=== PATIENT | male | born 1945 | race Caucasian/White ===

== ENCOUNTER 2017-05-12 23:22 | Emergency (ER) | payer MEDICARE ==
[~2017-05-12] VITALS: Ht 177.8 cm; Wt 77.3 kg
[~2017-05-12 23:22] MED LIST: IBUP200T2 PO; PROS5TAB PO; TAMS5CAP PO
[2017-05-12 23:24] VITALS: BP 157/78; PULSE 94; RESP 18; TEMP 98.1; O2SAT 98
--- NOTE | 2017-05-12 23:53 | PD ---
HPI Chief Complaint: Complaint Time Seen by Provider: 23:42 Travel History International Travel<30 days: No Contact w/Intl Traveler<30days: No Traveled to known affect area: No History of Present Illness HPI 72-year-old male with history of BPH, presents to the ER today for several days history of problems starting urine stream, mild dysuria, and states that it has been worsening today. He was not able to urinate for several hours until now. He has lower abdominal discomfort. He denies any nausea, vomiting, or any other symptoms. He states the last time he had symptoms, he was diagnosed with BPH and has been on Flomax for several years. He denies any new medications. Modifying Factors: None Associated Signs & Symptoms: Difficulty urinating, urinary urgency, dysuria, lower abdominal discomfort Risk Factors: History of BPH PFSH Past Medical History Arthritis: Yes Kidney Stones: Yes (hx of in the 70's) Tetanus Vaccination: < 5 Years Influenza Vaccination: Yes Social History Alcohol Use: Yes Tobacco Use: No (quit 1971) Substance Use: No Allergies-Medications (Allergen,Severity, Reaction): Coded Allergies: No Known Allergies (Unverified , 05/12/17) Reported Meds & Prescriptions Reported Meds & Active Scripts Active Proscar (Finasteride) 5 Mg Tab 5 Mg PO DAILY Do not crush. Reported Flomax (Tamsulosin HCl) 0.4 Mg Cap 0.4 Mg PO HS Ibuprofen 200 Mg Tab 200 Mg PO DIRECTED PRN Review of Systems Except as stated in HPI: all other systems reviewed are Neg Physical Exam Narrative GENERAL: Well-developed elderly male patient currently none acute distress. Awake and oriented 3. SKIN: Focused skin assessment warm/dry. HEAD: Atraumatic. Normocephalic. EYES: Pupils equal and round. No scleral icterus. No injection or drainage. ENT: No nasal bleeding or discharge. Mucous membranes pink and moist. NECK: Trachea midline. No JVD. CARDIOVASCULAR: Regular rate and rhythm. No murmur appreciated. RESPIRATORY: No accessory muscle use. Clear to auscultation. Breath sounds equal bilaterally. GASTROINTESTINAL: Abdomen soft, mild suprapubic tenderness without guarding or rebound, nondistended. Hepatic and splenic margins not palpable. MUSCULOSKELETAL: No obvious deformities. No clubbing. No cyanosis. No edema. NEUROLOGICAL: Awake and alert. No obvious cranial nerve deficits. Motor grossly within normal limits. Normal speech. PSYCHIATRIC: Appropriate mood and affect; insight and judgment normal. Data Data Last Documented VS Vital Signs Date Time Temp Pulse Resp B/P Pulse Ox O2 Delivery O2 Flow Rate FiO2 05/12/17 23:24 98.1 94 18 157/78 98 Room Air Orders Urinalysis - C+S If Indicated (05/12/17 23:42) Urinary Catheter Insert/Apply (05/12/17 23:42) Urine Culture (05/12/17 23:43) Labs Laboratory Tests Test 05/12/17 23:43 Urine Color YELLOW Urine Turbidity CLOUDY Urine pH 6.5 Urine Specific [place] 1.020 Urine Protein 100 mg/dL Urine Glucose (UA) NEG mg/dL Urine Ketones NEG mg/dL Urine Occult Blood LARGE Urine Nitrite NEG Urine Bilirubin NEG Urine Urobilinogen LESS THAN 2.0 MG/DL Urine Leukocyte Esterase LARGE Urine RBC /hpf Urine WBC /hpf Urine WBC Clumps MANY Urine Bacteria FEW /hpf Microscopic Urinalysis Comment CULTURE INDICATED MDM Medical Decision Making Medical Screen Exam Complete: Yes Emergency Medical Condition: Yes Medical Record Reviewed: Yes Interpretation(s) Laboratory Tests Test 05/12/17 23:43 Urine Turbidity CLOUDY (CLEAR) Urine Protein 100 mg/dL (NEG-TRACE) Urine Occult Blood LARGE (NEG) Urine Leukocyte Esterase LARGE (NEG) Urine WBC Clumps MANY (NONE) Urine Bacteria FEW /hpf (NONE) Differential Diagnosis Suprapubic tenderness, urinary symptomsBPH versus UTI Narrative Course Post void residual after Pugh catheter was placed was 300 cc. There is notable cloudy urine and UA shows UTI. His suspect that most of the symptoms is secondary to the UTI. My plan would be to treat the UTI. I have talked to the patient regarding the Pugh catheter and whether we should remove it versus keep it in place at this point until he follows up with his urologist, Dr. Henderson; and he states that he would rather maintain the Pugh catheter in case he has further issues at this time. We will give him a leg bag. Return for any worsening in pain, fevers, vomiting, or new symptoms as needed. The plan has been discussed with him and he states understanding. Diagnosis Primary Impression: UTI (urinary tract infection) Med/Other Pt SpecificInfo: Prescription(s) given Scripts Sulfamethoxazole-Trimethoprim (Bactrim DS)800-160 Mg Tab1 Tab PO BID #14 TAB Ref 0 Prov:Sally Kohler MD 05/13/17 Disposition: 01 DISCHARGE HOME Condition: Stable Sally Kohler MD May 12, 2017 23:53
[2017-05-13 00:09] LABS: BACTERIA, URINE FEW /hpf; BLOOD, URINE LARGE (NEG); COMMENT (UR) CULTURE INDICATED; CULTURE IF INDICATED CULTURE INDICATED; GLUCOSE,URINE NEG (NEG); KETONE, URINE NEG (NEG); NITRITE,URINE NEG (NEG); PH, URINE 6.5 (5.0-8.5); URINE COLOR YELLOW (YELLW/STRAW)
[2017-05-13] MEDS ORDERED: BACT800T5 PO (00:49)
[2017-05-13] MEDS ORDERED: SULFAMETHOXAZOLE-TRIMETHOPRIM DS 800-160 MG TAB PO ONE (01:00)
== END 2017-05-13 01:38 | disposition home or self-care (01) ==
LOC: NEPC 23:22
DX: N40.1 Benign prostatic hyperplasia with lower urinary tract symptoms (principal); N39.0 Urinary tract infection, site not specified
CPT/HCPCS: 81001; 87086; 99283

== ENCOUNTER 2017-10-25 11:54 | Observation (INO) | payer MEDICARE ==
[~2017-10-25] VITALS: Ht 177.8 cm; Wt 79.0 kg
[~2017-10-25 11:54] MED LIST changes: +BACT800T5 PO; -IBUP200T2 PO; +IBUP200T47 PO
[2017-10-25 12:05] VITALS: BP 134/63; PULSE 62; RESP 18; TEMP 97.9; O2SAT 97
[2017-10-25] MEDS ORDERED: SODIUM CHLOR 0.9% 1000 ML INJ 1,000 ML IV ONE (12:07)
[2017-10-25 12:11] VITALS: BP_SYST 127; BP_SYST 129; BP_SYST 134; BP_DIAS 63; BP_DIAS 64; BP_DIAS 68; RESP 18
--- NOTE | 2017-10-25 12:11 | PD ---
HPI Chief Complaint: Syncope/Near-Syncope Time Seen by Provider: 11:58 Travel History International Travel<30 days: No Contact w/Intl Traveler<30days: No Traveled to known affect area: No History of Present Illness HPI The patient is a 72-year-old male who presents to the emergency department after a possible syncopal episode. The patient underwent a TURP earlier today by his urologist, Dr. Dawson. The patient apparently was sitting in the car when he became nauseated, broke out in a sweat, and felt like he needed to have a bowel movement. The patient apparently "passed out "for an unknown length of duration. With the patient awakened he did state he was somewhat diaphoretic and felt nauseous. Patient states his symptoms have currently resolved and he has no current symptoms. Patient states she recently had palpitations and had an outpatient Holter monitor and echocardiogram at [facility] which were unremarkable per his report. The patient's primary physician is Dr. Hernandez. [facility] Past Medical History Arthritis: Yes Kidney Stones: Yes (hx of in the 70's) Social History Alcohol Use: Yes Tobacco Use: No (quit 1971) Substance Use: No Allergies-Medications (Allergen,Severity, Reaction): Coded Allergies: No Known Allergies (Unverified Adverse Reaction, Unknown, 10/25/17) Reported Meds & Prescriptions Reported Meds & Active Scripts Active Proscar (Finasteride) 5 Mg Tab 5 Mg PO DAILY Do not crush. Reported Cipro (Ciprofloxacin HCl) 500 Mg Tab 500 Mg PO BID Flomax (Tamsulosin HCl) 0.4 Mg Cap 0.4 Mg PO HS Ibuprofen 200 Mg Tab 200 Mg PO DIRECTED PRN Review of Systems Except as stated in HPI: all other systems reviewed are Neg HENT: Positive: Lightheadedness Cardiovascular: Positive: Diaphoresis, Syncope, No: Chest Pain or Discomfort, Palpitations, Irregular Rhythm, Tachycardia Respiratory: No: Shortness of Breath Gastrointestinal: Positive: Nausea, No: Vomiting, Abdominal Pain Musculoskeletal: Positive: Weakness Neurologic: Positive: Weakness Physical Exam Narrative GENERAL: Awake, alert, pleasant 72-year-old male who appears his stated age and is in no acute respiratory distress. SKIN: Focused skin assessment warm/dry. HEAD: Atraumatic. Normocephalic. EYES: Pupils equal and round. No scleral icterus. No injection or drainage. ENT: No nasal bleeding or discharge. Mucous membranes pink and moist. NECK: Trachea midline. No JVD. CARDIOVASCULAR: Regular rate and rhythm. No murmur appreciated. Heart rate in the 60s. RESPIRATORY: No accessory muscle use. Clear to auscultation. Breath sounds equal bilaterally. GASTROINTESTINAL: Abdomen soft, non-tender, nondistended. Genitourinary: Pugh catheter in place with visible blood in the Pugh catheter bag. MUSCULOSKELETAL: No obvious deformities. No clubbing. No cyanosis. No edema. NEUROLOGICAL: Awake and alert. No obvious cranial nerve deficits. Motor grossly within normal limits. Normal speech. Nonfocal. PSYCHIATRIC: Appropriate mood and affect; insight and judgment normal. Data Data Last Documented VS Vital Signs Date Time Temp Pulse Resp B/P (MAP) Pulse Ox O2 Delivery O2 Flow Rate FiO2 10/25/17 12:11 62 18 134/63 (86) 72 18 129/64 (85) 73 18 127/68 (87) 10/25/17 12:10 97 Room Air 10/25/17 12:05 97.9 Orders Orders Electrocardiogram (10/25/17 12:07) Complete Blood Count With Diff (10/25/17 12:07) Comprehensive Metabolic Panel (10/25/17 12:07) Magnesium (Mg) (10/25/17 12:07) Ecg Monitoring (10/25/17 12:07) Iv Access Insert/Monitor (10/25/17 12:07) Oximetry (10/25/17 12:07) Ondansetron Inj (Zofran Inj) (10/25/17 12:15) Sodium Chloride 0.9% Flush (Ns Flush) (10/25/17 12:15) Sodium Chlor 0.9% 1000 Ml Inj (Ns 1000 M (10/25/17 12:07) Orthostatic Vital Signs (10/25/17 12:07) Ondansetron Inj (Zofran Inj) (10/25/17 14:45) Sodium Chlor 0.9% 1000 Ml Inj (Ns 1000 M (10/25/17 14:45) Ciprofloxacin (Cipro) (10/25/17 21:00) Finasteride (Proscar) (10/26/17 09:00) Tamsulosin (Flomax) (10/25/17 21:00) Admit Order (Ed Use Only) (10/25/17 14:56) Labs Laboratory Tests Test 10/25/17 12:20 White Blood Count 8.8 TH/MM3 Red Blood Count 3.79 MIL/MM3 Hemoglobin 13.0 GM/DL Hematocrit 36.4 % Mean Corpuscular Volume 96.0 FL Mean Corpuscular Hemoglobin 34.2 PG Mean Corpuscular Hemoglobin Concent 35.6 % Red Cell Distribution Width 13.3 % Platelet Count 146 TH/MM3 Mean Platelet Volume 7.4 FL Neutrophils (%) (Auto) 85.5 % Lymphocytes (%) (Auto) 8.9 % Monocytes (%) (Auto) 5.3 % Eosinophils (%) (Auto) 0.2 % Basophils (%) (Auto) 0.1 % Neutrophils # (Auto) 7.5 TH/MM3 Lymphocytes # (Auto) 0.8 TH/MM3 Monocytes # (Auto) 0.5 TH/MM3 Eosinophils # (Auto) 0.0 TH/MM3 Basophils # (Auto) 0.0 TH/MM3 CBC Comment DIFF FINAL Differential Comment Blood Urea Nitrogen 18 MG/DL Creatinine 0.82 MG/DL Random Glucose 122 MG/DL Total Protein 6.2 GM/DL Albumin 3.5 GM/DL Calcium Level 7.9 MG/DL Magnesium Level 2.0 MG/DL Alkaline Phosphatase 59 U/L Aspartate Amino Transf (AST/SGOT) 22 U/L Alanine Aminotransferase (ALT/SGPT) 23 U/L Total Bilirubin 1.0 MG/DL Sodium Level 138 MEQ/L Potassium Level 3.6 MEQ/L Chloride Level 105 MEQ/L Carbon Dioxide Level 25.7 MEQ/L Anion Gap 7 MEQ/L Estimat Glomerular Filtration Rate 92 ML/MIN [facility] Medical Decision Making Medical Screen Exam Complete: Yes Emergency Medical Condition: Yes Medical Record Reviewed: Yes Interpretation(s) EKG reveals sinus bradycardia with sinus arrhythmia. Laboratory Tests Test 10/25/17 12:20 White Blood Count 8.8 TH/MM3 Red Blood Count 3.79 MIL/MM3 Hemoglobin 13.0 GM/DL Hematocrit 36.4 % Mean Corpuscular Volume 96.0 FL Mean Corpuscular Hemoglobin 34.2 PG Mean Corpuscular Hemoglobin Concent 35.6 % Red Cell Distribution Width 13.3 % Platelet Count 146 TH/MM3 Mean Platelet Volume 7.4 FL Neutrophils (%) (Auto) 85.5 % Lymphocytes (%) (Auto) 8.9 % Monocytes (%) (Auto) 5.3 % Eosinophils (%) (Auto) 0.2 % Basophils (%) (Auto) 0.1 % Neutrophils # (Auto) 7.5 TH/MM3 Lymphocytes # (Auto) 0.8 TH/MM3 Monocytes # (Auto) 0.5 TH/MM3 Eosinophils # (Auto) 0.0 TH/MM3 Basophils # (Auto) 0.0 TH/MM3 CBC Comment DIFF FINAL Differential Comment Blood Urea Nitrogen 18 MG/DL Creatinine 0.82 MG/DL Random Glucose 122 MG/DL Total Protein 6.2 GM/DL Albumin 3.5 GM/DL Calcium Level 7.9 MG/DL Magnesium Level 2.0 MG/DL Alkaline Phosphatase 59 U/L Aspartate Amino Transf (AST/SGOT) 22 U/L Alanine Aminotransferase (ALT/SGPT) 23 U/L Total Bilirubin 1.0 MG/DL Sodium Level 138 MEQ/L Potassium Level 3.6 MEQ/L Chloride Level 105 MEQ/L Carbon Dioxide Level 25.7 MEQ/L Anion Gap 7 MEQ/L Estimat Glomerular Filtration Rate 92 ML/MIN Differential Diagnosis Differential diagnosis includes syncope, vasovagal syncope, arrhythmia, seizure , electrolyte abnormality, cardiogenic syncope, micturition syncope. Narrative Course IV was established, labs are drawn and sent, and the patient was placed on cardiac telemetry monitoring and continuous pulse oximetry monitoring. EKG was ordered and interpreted. Orthostatic vital signs were obtained, the patient's blood pressure and heart rate did not change significantly, however, patient was dizzy upon standing which resolved after 10 seconds. The patient was administered 1 L of IV fluids. The patient's orthostatics were unremarkable except for dizziness with standing. The patient was reevaluated, felt somewhat improved, was able tolerate ice water. However, the patient then had another bout of dizziness, became diaphoretic, and felt like he needed to have a bowel movement. As the patient is had multiple near syncopal episodes in the ER and one syncopal episode at home the patient will be 23 hour observation for IV fluids. The patient's primary physician is Dr. Hernandez, she has [facility], therefore, the on-call [facility] physician was paged for 23 hour observation. Physician Communication Physician Communication The on-call [facility] physician was paged for 23 hour observation. I discussed the patient with Dr. Torres who agrees with 23 hour observation. Diagnosis Primary Impression: Syncope Qualified Codes: R55 - Syncope and collapse Admitting Information Admitting Physician Requests: Observation Condition: Stable Valerio Tinoco MD Oct 25, 2017 12:11
[2017-10-25] MEDS ORDERED: ONDANSETRON HCL 4 MG/2 ML VIAL IVP ONE (12:15)
[2017-10-25] MEDS ORDERED: SODIUM CHLORIDE 0.9% FLUSH 10 ML FLUSH IVF PRN (12:15)
[2017-10-25] MEDS ORDERED: CIPR-9 PO (12:16)
[2017-10-25 12:50] LABS: AUTOMATED NEUTROPHIL # 7.5 TH/MM3 (1.8-7.7); BASOPHIL % 0.1 % (0.0-2.0); EOSINOPHIL % 0.2 % (0.0-4.0); HEMATOCRIT 36.4 % (39.0-51.0); LYMPH % 8.9 % (9.0-44.0); LYMPHOCYTE # 0.8 TH/MM3 (1.0-4.8); MEAN CORPUSCULAR HEMOGLOBIN 34.2 PG (27.0-34.0); MEAN CORPUSCULAR HGB CONC 35.6 % (32.0-36.0); MEAN PLATELET VOLUME 7.4 FL (7.0-11.0); MONO % 5.3 % (0.0-8.0); MONOCYTE # 0.5 TH/MM3 (0-0.9); NEUT % 85.5 % (16.0-70.0); PLATELET COUNT 146 TH/MM3 (150-450); RED BLOOD COUNT 3.79 MIL/MM3 (4.50-5.90); RED CELL DISTRIBUTION WIDTH 13.3 % (11.6-17.2); WHITE BLOOD COUNT 8.8 TH/MM3 (4.0-11.0)
[2017-10-25 13:09] LABS: ALBUMIN 3.5 GM/DL (3.4-5.0); AST (GOT) 22 U/L (15-37); BICARBONATE 25.7 MEQ/L (21.0-32.0); BLOOD UREA NITROGEN 18 MG/DL (7-18); CALCIUM 7.9 MG/DL (8.5-10.1); CHLORIDE 105 MEQ/L (98-107); CREATININE 0.82 MG/DL (0.60-1.30); GLOMERULAR FILTRATION RATE 92 ML/MIN (>89); GLUCOSE,RANDOM 122 MG/DL (74-106); SODIUM (NA) 138 MEQ/L (136-145)
[2017-10-25 13:12] LABS: ALKALINE PHOSPHATASE 59 U/L (45-117); ALT (GPT) 23 U/L (12-78); TOTAL PROTEIN 6.2 GM/DL (6.4-8.2)
[2017-10-25] MEDS ORDERED: ONDANSETRON HCL 4 MG/2 ML VIAL IV PUSH ONE (14:45)
[2017-10-25] MEDS ORDERED: NALOXONE HCL 0.4 MG/ML AMP IV PUSH PRN (15:00)
[2017-10-25] MEDS ORDERED: MAGNESIUM HYDROXIDE SUSP 30 ML CUP PO PRN (15:00)
[2017-10-25] MEDS ORDERED: ACETAMINOPHEN 325 MG TAB PO PRN ×2 (15:00)
[2017-10-25] MEDS ORDERED: ONDANSETRON HCL 4 MG/2 ML VIAL IVP PRN (15:00)
[2017-10-25] MEDS ORDERED: traMADol HCL 50 MG TAB PO PRN (15:00)
[2017-10-25] MEDS ORDERED: SODIUM CHLORIDE 0.9% FLUSH 10 ML FLUSH IV FLUSH PRN (15:00)
[2017-10-25] MEDS: SODIUM CHLOR 0.9% 1000 ML INJ 1,000 ML IV SCH (15:04)
[2017-10-25 15:06] VITALS: BP 132/61; PULSE 66; RESP 18; O2SAT 99
--- NOTE | 2017-10-25 15:21 | HHI.HP ---
HPI Service [facility] Primary Care Physician Carmen Hernandez MD Admission Diagnosis vasovagal syncope, nausea, status post TURP Chief Complaint: Syncope/Presyncope Travel History International Travel<30 Days: No Contact w/Intl Traveler <30 Da: No Traveled to Known Affected Are: No History of Present Illness Mr. Parekh is a pleasant 72 y/o WM with BPH who presented to the ED at [facility] on 10/25/17 after a syncopal episode. The patient underwent outpt TURP earlier today with Dr. Dawson. The patient apparently went home post-procedure and was sitting in his car when he became nauseated, diaphoretic, and felt like he needed to have a bowel movement. The patient then reportedly "passed out" for an unknown length of time and when he woke back up he was somewhat diaphoretic and felt nauseous. Orthostatic vital signs were checked in the ED and the patient's blood pressure and heart rate did not change significantly, however, patient was dizzy upon standing which resolved after 10 seconds. The patient was administered 1 L of IVF in the ED. The patient was re-evaluated in the ED and felt somewhat improved; However, he had another bout of dizziness, and became diaphoretic and nauseated and again felt like he needed to have a bowel movement. Pt is being admitted for 23 hour observation and IV fluids. He has Pugh catheter in place with noted gross hematuria. Patient states that he recently had palpitations and had an outpatient Holter monitor which noted occasional PACs and PVCs and rare short atrial runs. He also had an echocardiogram which noted estimated EF 55-60%, mild aortic dilation at the level of the sinuses of Valsalva, moderate mitral valve regurgitation, mild aortic valve regurgitation, and mild tricuspid valve regurgitation, estimated PA pressure 29.9mmHg. Review of Systems Constitutional: COMPLAINS OF: Diaphoretic episodes, Dizziness, DENIES: Fever, Chills Eyes: DENIES: Vision loss Ears, nose, mouth, throat: DENIES: Hearing loss Respiratory: DENIES: Cough, Shortness of breath Cardiovascular: DENIES: Chest pain, Palpitations, Lower Extremity Edema Gastrointestinal: DENIES: Abdominal pain, Constipation, Diarrhea, GERD, Nausea , Vomiting Genitourinary: COMPLAINS OF: Hematuria Musculoskeletal: DENIES: Back pain, Neck pain Integumentary: DENIES: Rash Neurologic: DENIES: Headache, Localized weakness, Speech Problems Psychiatric: DENIES: Confusion Past Family Social History Past Medical History BPH s/p TURP today with Dr. Dawson Chronic prostatitis per outpt records Thrombocytopenia Varicose veins Past Surgical History Carpal tunnel release Lumbar Laminectomy Reported Medications Proscar (Finasteride) 5 Mg Tab 5 Mg PO DAILY Cipro (Ciprofloxacin HCl) 500 Mg Tab 500 Mg PO BID Flomax (Tamsulosin HCl) 0.4 Mg Cap 0.4 Mg PO HS Ibuprofen 200 Mg Tab 200 Mg PO DIRECTED PRN Allergies: Coded Allergies: No Known Allergies (Unverified Allergy, Unknown, 10/25/17) Family History Noncontributory Social History Denies any alcohol, tobacco or illicit drug use Pt is and lives with his spouse Physical Exam Vital Signs Vital Signs Date Time Temp Pulse Resp B/P (MAP) Pulse Ox O2 Delivery O2 Flow Rate FiO2 10/25/17 15:06 66 18 132/61 (84) 99 Room Air 10/25/17 12:11 62 18 134/63 (86) 72 18 129/64 (85) 73 18 127/68 (87) 10/25/17 12:10 62 18 97 Room Air 10/25/17 12:05 97.9 62 18 134/63 (86) 97 Physical Exam GENERAL: This is a well-nourished, well-developed patient, in no apparent distress. HEENT: Atraumatic. Normocephalic. No temporal or scalp tenderness. No scleral icterus. Airway patent. NECK: Trachea midline,supple, nontender. CARDIO: Regular. RESP: CTA bilaterally. No wheezes, rales, or rhonchi. ABD: +BS, soft, non-tender, nondistended. : Pugh catheter in place with gross hematuria noted EXT: Extremities without clubbing, cyanosis, or edema. NEURO: Awake and alert. Motor and sensory grossly within normal limits. Normal speech. Laboratory Laboratory Tests Test 10/25/17 12:20 White Blood Count 8.8 Red Blood Count 3.79 Hemoglobin 13.0 Hematocrit 36.4 Mean Corpuscular Volume 96.0 Mean Corpuscular Hemoglobin 34.2 Mean Corpuscular Hemoglobin Concent 35.6 Red Cell Distribution Width 13.3 Platelet Count 146 Mean Platelet Volume 7.4 Neutrophils (%) (Auto) 85.5 Lymphocytes (%) (Auto) 8.9 Monocytes (%) (Auto) 5.3 Eosinophils (%) (Auto) 0.2 Basophils (%) (Auto) 0.1 Neutrophils # (Auto) 7.5 Lymphocytes # (Auto) 0.8 Monocytes # (Auto) 0.5 Eosinophils # (Auto) 0.0 Basophils # (Auto) 0.0 CBC Comment DIFF FINAL Differential Comment Blood Urea Nitrogen 18 Creatinine 0.82 Random Glucose 122 Total Protein 6.2 Albumin 3.5 Calcium Level 7.9 Magnesium Level 2.0 Alkaline Phosphatase 59 Aspartate Amino Transf (AST/SGOT) 22 Alanine Aminotransferase (ALT/SGPT) 23 Total Bilirubin 1.0 Sodium Level 138 Potassium Level 3.6 Chloride Level 105 Carbon Dioxide Level 25.7 Anion Gap 7 Estimat Glomerular Filtration Rate 92 Result Diagram: 10/25/17 1220 10/25/17 1220 Imaging Last Impressions Chest X-Ray 10/25/17 1456 Signed Impressions: Service Date/Time: Wednesday, October 25, 2017 15:05 - CONCLUSION: No acute disease. MD Candi Villanuevai VTE Risk Assessment Caprini VTE Risk Assessment: Mod/High Risk (score >= 2) Caprini Risk Assessment Model Point Value = 1 Point Value = 2 Point Value = 3 Point Value = 5 Age 41-60 Minor surgery BMI > 25 kg/m2 Swollen legs Varicose veins or History of unexplained or recurrent spontaneous Oral contraceptives or hormone replacement Sepsis (< 1 month) Serious lung disease, including pneumonia (< 1 month) Abnormal pulmonary function Acute myocardial infarction Congestive heart failure (< 1 month) History of inflammatory bowel disease Medical patient at bed rest Age 61-74 Arthroscopic surgery Major open surgery (> 45 min) Laparoscopic surgery (> 45 min) Malignancy Confined to bed (> 72 hours) Immobilizing plaster cast Central venous access Age >= 75 History of VTE Family history of VTE Factor V Leiden Prothrombin [id number] Lupus anticoagulant Anticardiolipin antibodies Elevated serum homocysteine Heparin-induced thrombocytopenia Other congenital or acquired thrombophilia Stroke (< 1 month) Elective arthroplasty Hip, pelvis, or leg fracture Acute spinal cord injury (< 1 month) Prophylaxis Regimen Total Risk Factor Score Risk Level Prophylaxis Regimen 0-1 Low Early ambulation 2 Moderate Order ONE of the following: *Sequential Compression Device (SCD) *Heparin 5000 units SQ BID 3-4 Higher Order ONE of the following medications: *Heparin 5000 units SQ TID *Enoxaparin/Lovenox 40 mg SQ daily (WT < 150 kg, CrCl > 30 mL/min) *Enoxaparin/Lovenox 30 mg SQ daily (WT < 150 kg, CrCl > 10-29 mL/min) *Enoxaparin/Lovenox 30 mg SQ BID (WT < 150 kg, CrCl > 30 mL/min) AND/OR *Sequential Compression Device (SCD) 5 or more Highest Order ONE of the following medications: *Heparin 5000 units SQ TID (Preferred with Epidurals) *Enoxaparin/Lovenox 40 mg SQ daily (WT < 150 kg, CrCl > 30 mL/min) *Enoxaparin/Lovenox 30 mg SQ daily (WT < 150 kg, CrCl > 10-29 mL/min) *Enoxaparin/Lovenox 30 mg SQ BID (WT < 150 kg, CrCl > 30 mL/min) AND *Sequential Compression Device (SCD) Assessment and Plan Problem List: (1) Syncope ICD Codes: R55 - Syncope and collapse Status: Acute Plan: - Pt is a 72 y/o WM with BPH who presented to the ED at [facility] on 10/25/17 after a syncopal episode. - The patient underwent outpt TURP earlier today with Dr. Dawson. He went home post-procedure and was sitting in his car when he became nauseated, diaphoretic, and felt like he needed to have a bowel movement. The patient then reportedly "passed out" for an unknown length of time and when he woke back up he was somewhat diaphoretic and felt nauseous. - In the ED orthostatic vital signs were checked and were negative, however, patient was dizzy upon standing which resolved after 10 seconds. - The patient was administered 1 L of IVF in the ED but he had another bout of dizziness, and became diaphoretic and nauseated and again felt like he needed to have a bowel movement and became presyncopal. - Most likely pt experienced vasovagal syncope - Pt is being admitted for 23 hour observation and continued IV fluids. - Resume home meds including Flomax and Proscar for now, may need to hold the Flomax if there are any concerns regarding orthostasis - He has Upgh catheter in place with noted gross hematuria. - Repeat CBC in AM - Patient states that he recently had palpitations and had an outpatient Holter monitor which noted occasional PACs and PVCs and rare short atrial runs. He also had 2D echocardiogram which noted estimated EF 55-60%, mild aortic dilation at the level of the sinuses of Valsalva, moderate mitral valve regurgitation, mild aortic valve regurgitation, and mild tricuspid valve regurgitation, estimated PA pressure 29.9mmHg. - Cont. supportive care - Repeat labs in AM - Ambulate pt in the morning - DVT prophylaxis with SCDs (2) Hematuria ICD Codes: R31.9 - Hematuria Status: Acute Plan: - See above - Repeat labs in AM (3) BPH with obstruction/lower urinary tract symptoms ICD Codes: N40.1 - Benign prostatic hypertrophy with lower urinary tract symptoms (LUTS) Status: Acute Plan: - Home meds resumed - Pt just had TURP today and Pugh cath in place - Cipro 500mg po BID prescribed by Urology, post-procedurally and we will continue this. Assessment and Plan Patient examined. Assessment and plan formulated with Abbey Alfaro PA-C. I agree with the above. - IVFs - observe overnight - repeat labs in AM cbc/bmp/mag - anticipate d/c to home in 1-2 days Problem Qualifiers (1) Syncope: Qualified Codes: R55 - Syncope and collapse Abbey Alfaro Oct 25, 2017 15:21 Melo Torres DO Oct 25, 2017 23:45
--- NOTE | 2017-10-25 15:31 | RADRPT ---
EXAM DATE/TIME: 10/25/2017 15:05 [place] COMPARISON: No previous studies available for comparison. INDICATIONS : Syncopal episode today. Patient had a turp procedure this morning. Passed out getting out of car at h ome. MEDICAL HISTORY : None. SURGICAL HISTORY : Turp. Laminectomy. ENCOUNTER: Initial ACUITY: 1 day PAIN SCORE: 0/10 LOCATION: Bilateral chest FINDINGS: A single view of the chest demonstrates the lungs to be symmetrically aerated without evidence of mas s, infiltrate or effusion. The cardiomediastinal contours are unremarkable. Osseous structures are intact. CONCLUSION: No acute disease. Earl Marlow MD on October 25, 2017 at 15:27 Board Certified Radiologist. This report was verified electronically.
[2017-10-25 16:20] VITALS: BP 104/55; PULSE 45; RESP 18; O2SAT 99
[2017-10-25 18:05] VITALS: BP 92/52; PULSE 63; RESP 18; O2SAT 98
[2017-10-25] MEDS: SODIUM CHLORIDE 0.9% FLUSH 10 ML FLUSH IV FLUSH SCH (20:06)
[2017-10-25 20:36] VITALS: BP 114/64; PULSE 71; RESP 18; TEMP 98.1; O2SAT 98
[2017-10-25] MEDS: CIPROFLOXACIN 500 MG TAB PO SCH (20:39)
[2017-10-25] MEDS ORDERED: TAMSULOSIN HCL 0.4 MG CAP PO SCH (21:00)
[2017-10-26] MEDS: SODIUM CHLOR 0.9% 1000 ML INJ 1,000 ML IV SCH ×2 (01:01→11:53)
[2017-10-26 02:59] VITALS: BP 107/59; PULSE 77; RESP 18; TEMP 98.2; O2SAT 96
[2017-10-26 06:54] LABS: AUTOMATED NEUTROPHIL # 5.5 TH/MM3 (1.8-7.7); BASOPHIL % 0.1 % (0.0-2.0); EOSINOPHIL % 0.2 % (0.0-4.0); HEMATOCRIT 33.3 % (39.0-51.0); HEMOGLOBIN 11.8 GM/DL (13.0-17.0); LYMPH % 14.3 % (9.0-44.0); MEAN CELL VOLUME 96.7 FL (80.0-100.0); MEAN CORPUSCULAR HEMOGLOBIN 34.3 PG (27.0-34.0); MEAN CORPUSCULAR HGB CONC 35.5 % (32.0-36.0); MEAN PLATELET VOLUME 7.6 FL (7.0-11.0); MONO % 6.6 % (0.0-8.0); MONOCYTE # 0.5 TH/MM3 (0-0.9); NEUT % 78.8 % (16.0-70.0); PLATELET COUNT 144 TH/MM3 (150-450); RED BLOOD COUNT 3.44 MIL/MM3 (4.50-5.90); RED CELL DISTRIBUTION WIDTH 13.7 % (11.6-17.2)
[2017-10-26 07:22] LABS: BICARBONATE 23.8 MEQ/L (21.0-32.0); CALCIUM 7.7 MG/DL (8.5-10.1); CREATININE 0.73 MG/DL (0.60-1.30)
[2017-10-26 08:22] VITALS: BP 115/60; PULSE 76; RESP 18; TEMP 98.2; O2SAT 97
[2017-10-26] MEDS ORDERED: FINASTERIDE 5 MG TAB PO SCH (09:00)
[2017-10-26] MEDS: SODIUM CHLORIDE 0.9% FLUSH 10 ML FLUSH IV FLUSH SCH (09:00)
[2017-10-26] MEDS: CIPROFLOXACIN 500 MG TAB PO SCH (09:39)
[2017-10-26 11:32] VITALS: BP 103/56; PULSE 81; RESP 18; TEMP 98.6; O2SAT 96
--- NOTE | 2017-10-26 14:23 | EKG ---
Date Performed: 10/25/2017 Time Performed: 12:16:09 PTAGE: 72 years EKG: SINUS BRADYCARDIA WITH SINUS ARRHYTHMIA BORDERLINE ECG NO PREVIOUS TRACING DOCTOR: Elvia Yost Interpretating Date/Time 10/26/2017 14:22:16
--- NOTE | 2017-10-26 14:57 | HHI.PR ---
Subjective Remarks Pt feeling much better today He has been ambulating without difficulty and in anxious for discharge to home today Objective Vitals Vital Signs Date Time Temp Pulse Resp B/P (MAP) Pulse Ox O2 Delivery O2 Flow Rate FiO2 10/26/17 11:32 98.6 81 18 103/56 (72) 96 10/26/17 08:22 98.2 76 18 115/60 (78) 97 10/26/17 02:59 98.2 77 18 107/59 (75) 96 10/25/17 20:36 98.1 71 18 114/64 (81) 98 10/25/17 18:05 63 18 92/52 (65) 98 Room Air 10/25/17 17:59 10/25/17 16:20 45 18 104/55 (71) 99 Room Air 10/25/17 15:06 66 18 132/61 (84) 99 Room Air Result Diagram: 10/26/17 0605 10/26/17 0605 Other Results Laboratory Tests Test 10/25/17 12:20 10/26/17 06:05 White Blood Count 8.8 TH/MM3 7.0 TH/MM3 Red Blood Count 3.79 MIL/MM3 3.44 MIL/MM3 Hemoglobin 13.0 GM/DL 11.8 GM/DL Hematocrit 36.4 % 33.3 % Mean Corpuscular Volume 96.0 FL 96.7 FL Mean Corpuscular Hemoglobin 34.2 PG 34.3 PG Mean Corpuscular Hemoglobin Concent 35.6 % 35.5 % Red Cell Distribution Width 13.3 % 13.7 % Platelet Count 146 TH/MM3 144 TH/MM3 Mean Platelet Volume 7.4 FL 7.6 FL Neutrophils (%) (Auto) 85.5 % 78.8 % Lymphocytes (%) (Auto) 8.9 % 14.3 % Monocytes (%) (Auto) 5.3 % 6.6 % Eosinophils (%) (Auto) 0.2 % 0.2 % Basophils (%) (Auto) 0.1 % 0.1 % Neutrophils # (Auto) 7.5 TH/MM3 5.5 TH/MM3 Lymphocytes # (Auto) 0.8 TH/MM3 1.0 TH/MM3 Monocytes # (Auto) 0.5 TH/MM3 0.5 TH/MM3 Eosinophils # (Auto) 0.0 TH/MM3 0.0 TH/MM3 Basophils # (Auto) 0.0 TH/MM3 0.0 TH/MM3 CBC Comment DIFF FINAL DIFF FINAL Differential Comment Blood Urea Nitrogen 18 MG/DL 12 MG/DL Creatinine 0.82 MG/DL 0.73 MG/DL Random Glucose 122 MG/DL 100 MG/DL Total Protein 6.2 GM/DL Albumin 3.5 GM/DL Calcium Level 7.9 MG/DL 7.7 MG/DL Magnesium Level 2.0 MG/DL Alkaline Phosphatase 59 U/L Aspartate Amino Transf (AST/SGOT) 22 U/L Alanine Aminotransferase (ALT/SGPT) 23 U/L Total Bilirubin 1.0 MG/DL Sodium Level 138 MEQ/L 140 MEQ/L Potassium Level 3.6 MEQ/L 3.9 MEQ/L Chloride Level 105 MEQ/L 109 MEQ/L Carbon Dioxide Level 25.7 MEQ/L 23.8 MEQ/L Anion Gap 7 MEQ/L 7 MEQ/L Estimat Glomerular Filtration Rate 92 ML/MIN 106 ML/MIN Imaging Last Impressions Chest X-Ray 10/25/17 1456 Signed Impressions: Service Date/Time: Wednesday, October 25, 2017 15:05 - CONCLUSION: No acute disease. Earl Marlow MD Objective Remarks General: NAD, AAOx3 Chest: CTA Cardiac: Regular Abd: +BS, soft ND/NT Ext: No edema A/P Problem List: (1) Syncope ICD Codes: R55 - Syncope and collapse Status: Acute Plan: - Pt is a 72 y/o WM with BPH who presented to the ED at [facility] [place] on 10/25/17 after a syncopal episode. - The patient underwent outpt TURP earlier today with Dr. Dawson. He went home post-procedure and was sitting in his car when he became nauseated, diaphoretic, and felt like he needed to have a bowel movement. The patient then reportedly "passed out" for an unknown length of time and when he woke back up he was somewhat diaphoretic and felt nauseous. - In the ED orthostatic vital signs were checked and were negative, however, patient was dizzy upon standing which resolved after 10 seconds. - The patient was administered 1 L of IVF in the ED but he had another bout of dizziness, and became diaphoretic and nauseated and again felt like he needed to have a bowel movement and became presyncopal. - Most likely pt experienced vasovagal syncope - Pt was admitted for 23 hour observation and continued IV fluids. - Home meds resumed including Flomax and Proscar for now - He has Pugh catheter in place with noted gross hematuria. Hematuria is improving - Repeat CBC (10/26/17) --> 11.8/33.3 - Pt has been ambulating without difficulty and is anxious to go home today - Pt has a [facility] nurse coming to the house tomorrow to remove the Pugh catheter - Pt will continue the Cipro as prescribed by Dr. Dawson and he has pain meds already prescribed - Pt has a followup scheduled with Dr. Dawson in place (2) Hematuria ICD Codes: R31.9 - Hematuria Status: Acute Plan: - See above - Repeat labs in AM (3) BPH with obstruction/lower urinary tract symptoms ICD Codes: N40.1 - Benign prostatic hypertrophy with lower urinary tract symptoms (LUTS) Status: Acute Plan: - Home meds resumed - Pt just had TURP on 10/25 [address] in place - See above Assessment and Plan Patient examined. Assessment and plan formulated with Abbey Alfaro PA-C. I agree with the above. Problem Qualifiers (1) Syncope: Qualified Codes: R55 - Syncope and collapse Abbey Alfaro Oct 26, 2017 14:57 Melo Torres DO Oct 29, 2017 00:26
--- NOTE | 2017-10-26 15:01 | HHI.DCPOC ---
Discharge Care Plan Diagnosis: (1) Syncope (2) Hematuria (3) BPH with obstruction/lower urinary tract symptoms Goals to Promote Your Health * To prevent worsening of your condition and complications * To maintain your health at the optimal level Directions to Meet Your Goals Take your medications as prescribed Follow your dietary instruction Follow activity as directed Keep your appointments as scheduled Take your immunizations and boosters as scheduled If your symptoms worsen call your PCP, if no PCP go to Urgent Care Center or Emergency Room Smoking is Dangerous to Your Health. Avoid second hand smoke Call the 24-hour hour crisis hotline for domestic abuse at Abbey Alfaro Oct 26, 2017 15:01 Melo Torres DO Oct 29, 2017 00:26
== END 2017-10-26 17:30 | disposition home or self-care (01) ==
LOC: NEPC 11:54 → NEDA 14:58 → NEPHCDU 19:07
PROVIDERS: ADMIT Hospitalist; ATTEND Hospitalist
DX: R55 Syncope and collapse (principal); R31.0 Gross hematuria; N40.1 Benign prostatic hyperplasia with lower urinary tract symptoms; R11.0 Nausea; R61 Generalized hyperhidrosis; R42 Dizziness and giddiness; R00.1 Bradycardia, unspecified; I49.9 Cardiac arrhythmia, unspecified; N41.1 Chronic prostatitis; Z79.899 Other long term (current) drug therapy; Z87.891 Personal history of nicotine dependence
CPT/HCPCS: 71045; 80048; 80053; 83735; 85025; 93005; 96361; 96374; 96376; 97162; 99285; G0378; J2405; J7030